=== PATIENT | female | born 1965 | race Caucasian/White ===

== ENCOUNTER 2021-11-08 11:14 | Emergency (ER) | payer BC ==
[2021-11-08 13:10] LABS: HEMOGLOBIN 13.8 gm/dl (12.3-15.3); RED BLOOD COUNT 4.53 M/UL (4.00-5.10)
[2021-11-08 13:28] LABS: BUN/CREATININE RATIO 15 (0-10)
[2021-11-08] MEDS ORDERED: IBUPROFEN600 MG PO (13:40)
== END 2021-11-08 13:55 | disposition home or self-care (01) ==
LOC: ER1 11:14
PROVIDERS: Nurse Practitioner
DX: S80.11XA Contusion of right lower leg, initial encounter (principal); I10 Essential (primary) hypertension; X58.XXXA Exposure to other specified factors, initial encounter
CPT/HCPCS: 80053; 85025; 93971; 99284

== ENCOUNTER → 2021-12-21 | Outpatient (CLI) | payer BC ==
[~2021-12-21] MED LIST: IBUPROFEN600 MG PO
== END ==
LOC: KOH-I 13:31
DX: M25.561 Pain in right knee (principal); R22.41 Localized swelling, mass and lump, right lower limb
CPT/HCPCS: 73562